=== PATIENT | female | born 1985 | race Caucasian/White ===

== ENCOUNTER → 2021-06-16 14:43 | Outpatient (CLI) | payer OTHER, BC, SELFPAY ==
--- NOTE | ~2021-06-16 | US_ITS ---
EXAMINATION: US pelvic complete DATE: 06/16/2021 15:04 INDICATION: Pelvic pain and cramping Comparison:Ultrasound dated 09/22/2015 TECHNIQUE: Multiple transabdominal and endovaginal sonographic images of the pelvis performed. FINDINGS: The uterus measures 9.5 x 5 x 5.4 cm. Uterus is retroverted. There is a uterine fibroid at the fundus measuring 2.8 x 3.3 x 2 cm. The endometrial complex measures 9 mm. There is an IUD present in the endometrium. The right ovary measures 4 x 1.9 x 2.9 cm and the left ovary measures 3.3 x 2.1 x 2.3 cm. There are small follicles in each ovary. Normal doppler signal in both ovaries. There is no free fluid in the pelvis. There are no abnormal masses seen on either side. IMPRESSION: 1. Uterine fibroid located at the fundus posteriorly measuring up to 3.3 cm maximum dimension. Reviewed, dictated and finalized at location A. IMPRESSION: 1. Uterine fibroid located at the fundus posteriorly measuring up to 3.3 cm max imum dimension.
== END ==
PROVIDERS: PCP Nurse Practitioner; Visit Provider Nurse Practitioner
DX: R10.2 Pelvic and perineal pain (principal); D25.9 Leiomyoma of uterus, unspecified
CPT/HCPCS: 76856

== ENCOUNTER 2024-10-10 07:03 | Outpatient (CLI) | payer OTHER, SELFPAY ==
--- NOTE | ~2024-10-10 | MM_ITS ---
EXAMINATION: MM screening [facility] BI w [facility] HISTORY: Screening TECHNIQUE: Craniocaudal and mediolateral oblique 3-D tomosynthesis images were obtained and synthetic 2-D images were generated. CAD analysis was submitted and interpreted. COMPARISON: No prior mammogram is available for comparison at this institution. BREAST PARENCHYMAL COMPOSITION: There are scattered areas of fibroglandular density. FINDINGS: There is no evidence of suspicious mass, calcification, or architectural distortion in either breast to suggest malignancy. There has been no significant interval change. IMPRESSION: 1. No mammographic evidence of malignancy. Recommend routine screening mammography in one year. BI-RADS Category 1: Negative Reviewed, dictated and finalized at location Q. IMPRESSION: 1. No mammographic evidence of malignancy. Recommend routine screening mammogra phy in one year. BI-RADS Category 1: Negative
== END 2024-10-10 07:04 | disposition home or self-care (01) ==
LOC: ANHFOHIMG 07:06
PROVIDERS: Visit Provider Nurse Practitioner
DX: Z12.31 Encounter for screening mammogram for malignant neoplasm of breast (principal)
CPT/HCPCS: 77063; 77067